=== PATIENT | female | born 1955 | race Asian ===

== ENCOUNTER 2019-03-02 09:13 | Emergency (ER) | payer OTHER ==
--- NOTE | 2019-03-02 10:32 | ED Physician Documentation ---
PD HPI SKIN - Stated complaint Stated Complaint: RASH - Chief complaint Chief Complaint: Wound - History obtained from History obtained from: Patient - History of Present Illness Timing - onset: Yesterday Timing - details: Gradual onset, Still present Location: Bodywide Quality / character: Itchy, Burning, Discolored (red) Associated symptoms: No: Fever, Facial swelling, Dyspnea, N/V/D Contributing factors: Recent illness (She has had some runny nose and mild scratchy throat for 3 to 4 days. She thought she had a mild cold.). No: Exposed to medication (She is on a blood pressure medicine benazepril for a month but finished it 5 days ago. Her symptoms just started 2 days ago. No other new medicines or foods.), Exposed to food Similar symptoms before: Has not had sx before Review of Systems Constitutional: denies: Fever, Chills, Myalgias Nose: reports: Rhinorrhea / runny nose, Congestion Throat: reports: Sore throat. denies: Oral lesions / sores Respiratory: denies: Dyspnea, Cough GI: denies: Nausea, Vomiting, Diarrhea PD PAST MEDICAL HISTORY - Past Medical History Cardiovascular: Hypertension Respiratory: None Neuro: None Endocrine/Autoimmune: None - Present Medications Home Medications: Ambulatory Orders Medication Instructions Recorded Confirmed RX: Cetirizine [ZyrTEC] 10 mg PO DAILY #15 tablet 03/02/19 dexAMETHasone [Decadron] 4 mg PO DAILY #5 tablet 03/02/19 diphenhydrAMINE [Benadryl] 25 mg PO Q4-6H PRN #30 capsule 03/02/19 - Allergies Allergies/Adverse Reactions: Allergies Allergy/AdvReac Type Severity Reaction Status Date / Time Penicillins Allergy Edema Verified 03/02/19 09:28 PD ED PE NORMAL - Vitals Vital signs reviewed: Yes - General General: Alert and oriented X 3, No acute distress, Well developed/nourished - HEENT HEENT: Moist mucous membranes, Pharynx benign (no redness nor swelling) - Neck Neck: Supple, no meningeal sign, No adenopathy - Cardiac Cardiac: RRR, No murmur - Respiratory Respiratory: Clear bilaterally - Abdomen Abdomen: Soft, Non tender - Derm Derm: Normal color, Warm and dry, Other (Patchy slightly raised irregular bordered nonvesicular rash consistent with hives predominantly on the trunk upper arms and thighs. There is some on her back as well.) - Extremities Extremities: No tenderness to palpate, No edema, No calf tenderness / cord - Neuro Neuro: Alert and oriented X 3, No motor deficit, Normal speech Results - Vitals Vitals: Vital Signs - 24 hr 03/02/19 03/02/19 09:26 10:51 Temperature 36.6 C Heart Rate 115 H 99 Respiratory 16 16 Rate Blood Pressure 162/103 H 161/100 H O2 Saturation 99 98 Oxygen O2 Source Room air PD MEDICAL DECISION MAKING - ED course Complexity details: considered differential, d/w patient Departure - Departure Disposition: Home, Self Care Clinical Impression: Urticaria, acute Condition: Stable Record reviewed to determine appropriate education?: Yes Instructions: ED Urticaria Follow-Up: PAULINE VERA [Primary Care Provider] - Prescriptions: RX: Cetirizine [ZyrTEC] 10 mg PO DAILY #15 tablet dexAMETHasone [Decadron] 4 mg PO DAILY #5 tablet diphenhydrAMINE [Benadryl] 25 mg PO Q4-6H PRN #30 capsule PRN Reason: Itching Comments: This looks like an allergic reaction. It might just be a response to your current viral illness. We will treated with Decadron steroid for 5 days and cetirizine daily for a week or so. Add Benadryl every 6 hours if needed for itchiness and hives. Recheck if not improved over the next few days or if recurrent episodes in the future. Discharge Date/Time: 03/02/19 10:57
[2019-03-02] MEDS ORDERED: diphenhydrAMINE 25 MG CAPSULE PO STA (10:42)
[2019-03-02] MEDS ORDERED: DEXAMETHASONE 10 MG/ML VIAL PO STA (10:42)
[2019-03-02] MEDS ORDERED: CHERRY SYRUP 10 ML UDC PO ONE (10:42)
[2019-03-02] MEDS ORDERED: CETIRIZINE 10 MG TABLET PO STA (10:42)
[2019-03-02 10:56] VITALS: BP 161/100
== END 2019-03-02 10:57 | disposition home or self-care (01) ==
LOC: ED 09:13
DX: L50.9 Urticaria, unspecified (principal); I10 Essential (primary) hypertension
CPT/HCPCS: 99283; 99284; A9270